=== PATIENT | male | born 1960 | race Caucasian/White ===

== ENCOUNTER 2019-01-21 21:57 | Emergency (ER) | payer OTHER ==
--- NOTE | 2019-01-21 22:28 | PDOC ---
History of Present Illness <Nicolasa Champion - Last Filed: 01/22/19 04:11> - General History Source: Patient, Family Exam Limitations: Language Barrier - History of Present Illness Initial Comments: 01/21/19 22:28 Bryant Isbell is a 58yM with PMHx diabetes, HTN, HLD, prostate hyperplasia presenting with fall. Underwent prostate biopsy 5pm today with subsequent gross bleeding w blood clots from rectum and hematuria. At 830pm, after urinating and seeing blood, pt felt dizzy, cold sweats, pale, and slumped on knees onto ground. No head trauma or LOS. Took prescribed antibiotics as directed after biopsy. Denies fever, n/v, SOB, chest/AB pain, diarrhea/constipation. Dr. Rio Ace urologist [phone] <Cain Sharma - Last Filed: 01/22/19 07:52> - General Chief Complaint: Blood Pressure Problem Stated Complaint: BLEEDING Time Seen by Provider: 01/21/19 22:28 Past History <Nicolasa Champion - Last Filed: 01/22/19 04:11> - Past Medical History Diabetes: Yes Disorders: Yes (BPH) HTN: Yes - Suicide/Smoking/Psychosocial Hx Smoking History: Never smoked Have you smoked in the past 12 months: No Hx Alcohol Use: No Drug/Substance Use Hx: No Substance Use Type: None <Cain Sharma - Last Filed: 01/22/19 07:52> - Past Medical History Allergies/Adverse Reactions: Allergies Allergy/AdvReac Type Severity Reaction Status Date / Time No Known Drug Allergies Allergy Verified 01/21/19 22:27 Home Medications: Ambulatory Orders Aspirin [ASA -] 325 mg PO DAILY 10/20/14 Glyburide 5 mg PO DAILY 10/20/14 Lisinopril [Zestril] 10 mg PO DAILY 10/20/14 Metformin HCl [Glucophage] 500 mg PO BID 10/20/14 Simvastatin [Zocor -] 20 mg PO HS 10/20/14 Review of Systems - Review of Systems Constitutional: No: Chills, Fever HEENTM: No: Eye Pain, Nose Pain, Throat Pain Respiratory: No: Cough, Shortness of Breath, Wheezing Cardiac (ROS): No: Chest Pain, Irregular Heart Rate, Palpitations, Syncope ABD/GI: Yes: Rectal Bleeding. No: Abdominal Distended, Constipated, Diarrhea, Nausea, Vomiting : Yes: Hematuria. No: Burning, Dysuria, Discharge, Incontinence Musculoskeletal: No: Back Pain, Joint Pain, Muscle Pain, Muscle Weakness Integumentary: No: Bruising, Flushing, Lesions, Lumps Neurological: No: Headache, Paresthesia, Seizure, Tingling, Tremors Psychiatric: No: Anxiety, Depression Endocrine: No: Excessive Sweating, Flushing, Intolerance to Cold, Intolerance to Heat Hematologic/Lymphatic: No: Anemia, Blood Clots, Easy Bleeding <Cain Sharma - Last Filed: 01/22/19 07:52> *Physical Exam - Vital Signs Last Vital Signs Temp Pulse Resp BP Pulse Ox 98.1 F 74 19 139/47 L 98 01/22/19 02:54 01/22/19 02:54 01/22/19 02:54 01/22/19 02:54 01/22/19 02:54 <Nicolasa Champion - Last Filed: 01/22/19 04:11> - Physical Exam General Appearance: Yes: Nourished, Appropriately Dressed. No: Apparent Distress HEENT: positive: EOMI, HERIBERTO, Normal Voice, Hearing Grossly Normal. negative: Scleral Icterus (R), Scleral Icterus (L) Respiratory/Chest: positive: Lungs Clear, Normal Breath Sounds. negative: Chest Tender, Respiratory Distress, Crackles, Rales, Rhonchi, Stridor, Wheezing Cardiovascular: positive: Regular Rhythm, Regular Rate, S1, S2. negative: Edema , Murmur Gastrointestinal/Abdominal: positive: Normal Bowel Sounds, Flat, Soft. negative : Tender, Organomegaly, Distended, Guarding, Rebound, Hernia, Mass Male Genitalia: positive: normal genitalia. negative: discharge, testicular tenderness, testicular mass Integumentary: positive: Normal Color Neurologic: positive: lidar technician II-XII NML intact, Fully Oriented, Alert, Normal Mood/ Affect, Normal Response, Responsive. negative: Confused, Disoriented <Cain Sharma - Last Filed: 01/22/19 07:52> ED Treatment Course - LABORATORY CBC & Chemistry Diagram: 01/22/19 02:20 01/21/19 23:15 - ADDITIONAL ORDERS Additional order review: Laboratory Results 0801/21/19 01/21/19 00:10 23:15 23:15 Sodium 133 L Potassium 4.2 Chloride 98 Carbon Dioxide 26 Anion Gap 9 BUN 14.7 Creatinine 0.9 Est GFR (CKD-EPI)AfAm 107.22 Est GFR (CKD-EPI)NonAf 92.51 Random Glucose 277 H Calcium 7.7 L Total Bilirubin 0.4 AST 34 ALT 55 Alkaline Phosphatase 88 Creatine Kinase 178 Creatine Kinase Index 0.5 CK-MB (CK-2) 1.0 Troponin I < 0.02 Total Protein 5.5 L Albumin 2.9 L Urine Color Yellow Urine Appearance Clear Urine pH 6.0 Ur Specific [place] 1.021 Urine Protein Negative Urine Glucose (UA) 3+ H Urine Ketones Negative Urine Blood 3+ H Urine Nitrite Negative Urine Bilirubin Negative Urine Urobilinogen 0.2 Ur Leukocyte Esterase Negative Urine WBC (Auto) 2 Urine RBC (Auto) 140 Urine Casts (Auto) 6 U Epithel Cells (Auto) 1.0 Urine Bacteria (Auto) 0.2 01/22/19 01/21/19 02:20 23:15 RBC 3.11 L 3.56 L MCV 83.6 83.8 MCHC 34.7 34.3 RDW 13.0 13.2 MPV 8.0 8.4 Neutrophils % 73.1 76.4 Lymphocytes % 15.6 D 10.0 Monocytes % 3.5 L 5.2 Eosinophils % 7.5 H 8.0 H Basophils % 0.3 0.4 - Medications Given in the ED: ED Medications Discontinued Medications Generic Name Dose Route Start Last Admin Trade Name Freq PRN Reason Stop Dose Admin Sodium Chloride 1,000 ml 01/21/19 23:10 01/22/19 00:00 Normal Saline - IV 01/21/19 23:11 1,000 ml ONCE ONE Administration <Nicolasa Champion - Last Filed: 01/22/19 04:11> - LABORATORY CBC & Chemistry Diagram: 01/22/19 02:20 01/21/19 23:15 <Cain Sharma - Last Filed: 01/22/19 07:52> Medical Decision Making - Medical Decision Making 01/21/19 22:38 CBC CMP trop EKG CXR UA EKG, CMP, CXR normal, trop neg bladder scan showed normal bladder void w/o retention WBC 13, Hgb 10 Repeat BP 140/50, Hgb 10 to 9 after 1L NS given (dilutional) Bryant Isbell is a 58yM with PMHx diabetes, HTN, HLD, prostate hyperplasia presenting with fall s/p prostate biopsy. Fall likely vasovagal syncope d/t vagal symptoms (cold sweats, dizzy, sight of blood). No head trauma, neuro intact. Unlikely substantial blood loss from procedure per urologist. Unlikely cardiac origin in setting of normal CXR, EKG. Bladder scan showed normal bladder void without signs of retention. Given 1L NS for low BP. D/c home with urology <Cain Sharma - Last Filed: 01/22/19 07:52> *DC/Admit/Observation/Transfer - Discharge Dispostion Decision to Admit order: No <Nicolasa Champion - Last Filed: 01/22/19 04:11> <Cain Sharma - Last Filed: 01/22/19 07:52> Diagnosis at time of Disposition: Rectal bleeding - Discharge Dispostion Disposition: HOME Condition at time of disposition: Stable - Referrals Referrals: Miguel Ángel Tang [Primary Care Provider] - - Patient Instructions Printed Discharge Instructions: DI for Rectal Bleeding - Post Discharge Activity
[2019-01-21 22:29] VITALS: BMI 29.6
[2019-01-21] MEDS ORDERED: SODIUM CHLORIDE 0.9% 500 ML INFUS.BAG IV ONE (23:10)
[2019-01-21 23:37] LABS: BASO % 0.4 % (0-2.0); HEMATOCRIT 29.9 % (35.4-49); HEMOGLOBIN 10.2 GM/dL (11.7-16.9); MCH 28.7 pg (25.7-33.7); MCHC 34.3 g/dl (32.0-35.9); MEAN CELL VOLUME 83.8 fl (80-96); MEAN PLT VOLUME 8.4 fl (7.5-11.1); MONO % 5.2 % (3.8-10.2); NEUT % 76.4 % (42.8-82.8); PLATELET COUNT 202 K/MM3 (134-434); RBC 3.56 M/mm3 (4.00-5.60); RDW 13.2 % (11.9-15.9); WHITE BLOOD COUNT 13.6 K/mm3 (4.0-10.0)
--- NOTE | 2019-01-21 23:47 | PDOC ---
Documentation entered by Laney Peters SCRIBE, acting as scribe for Nicolasa Champion MD. Nicolasa Champion MD: This documentation has been prepared by the Fran noe Brenda, SCRIBE, under my direction and personally reviewed by me in its entirety. I confirm that the documentation accurately reflects all work, treatment, procedures, and medical decision making performed by me. Attending Attestation - Resident Resident Name: Cain Sharma - ED Attending Attestation I have performed the following: I have examined & evaluated the patient, The case was reviewed & discussed with the resident, I agree w/resident's findings & plan - HPI HPI: 01/21/19 23:10 The patient is a 58 year old male, with a significant PMH of diabetes, HTN, HLD and prostate hyperplasia, who presents to the emergency department after a fall following a prostate biopsy. As per grandson, on the bedside, the patient had the biopsy today at 5:00pm, upon getting home while trying to walk to his bed he became pale and experced cold sweats at which point he fell. As per , on the bedside, the patient lost a lot of blood. The patient denies chest pain, shortness of breath, headache and dizziness. Denies fever, vomiting, diarrhea and constipation. Denies any urinary symptoms. Allergies: NKA Social history: Denies any tobacco use, alcohol use or illicit drug use. Urologist: Isaac PCP: [facility] - Physicial Exam PE: 01/21/19 23:12 GENERAL: Awake, alert, and fully oriented, in no acute distress HEAD: No signs of trauma EYES: PERRLA, EOMI, sclera anicteric, conjunctiva clear ENT: Auricles normal inspection, hearing grossly normal, nares patent, oropharynx clear without exudates. Moist mucosa NECK: Normal ROM, supple, no lymphadenopathy, JVD, or masses LUNGS: Breath sounds equal, clear to auscultation bilaterally. No wheezes, and no crackles HEART: Regular rate and rhythm, normal S1 and S2, no murmurs, rubs or gallops ABDOMEN: Soft, nontender, normoactive bowel sounds. No guarding, no rebound. No masses EXTREMITIES: Normal range of motion, no edema. No clubbing or cyanosis. No cords, erythema, or tenderness NEUROLOGICAL: Cranial nerves II through XII grossly intact. Normal speech, normal gait SKIN: Warm, Dry, normal turgor, no rashes or lesions noted. - Medical Decision Making 01/21/19 22:49 Pt's urologist Isaac is recommending bladder US and for us to treat with rocephin 01/22/19 00:41 Pt has hb of 10; this is low, given the fact that pt's systolic BP is 104 and that he has no old HB for comparison. We will repeat CBC at 4 hrs. 01/22/19 00:54 Cardiomegaly (however this is a portable film) normal mediastinum; clear lung gentile
[2019-01-22 00:08] LABS: ALBUMIN 2.9 g/dl (3.4-5.0); BILIRUBIN,TOTAL 0.4 mg/dL (0.2-1); BLOOD UREA NITROGEN 14.7 mg/dL (7-18); CALCIUM 7.7 mg/dL (8.5-10.1); CREATININE 0.9 mg/dL (0.55-1.3); POTASSIUM 4.2 mmol/L (3.5-5.1); TOT PROT 5.5 g/dl (6.4-8.2)
[2019-01-22 02:32] LABS: MEAN CELL VOLUME 83.6 fl (80-96); NEUT % 73.1 % (42.8-82.8)
[2019-01-22 02:37] LABS: BASO % 0.3 % (0-2.0); EOS % 7.5 % (0-4.5); LYMPH % 15.6 % (8-40); MCHC 34.7 g/dl (32.0-35.9); MONO % 3.5 % (3.8-10.2); PLATELET COUNT 182 K/MM3 (134-434); RBC 3.11 M/mm3 (4.00-5.60); WHITE BLOOD COUNT 10.2 K/mm3 (4.0-10.0)
[2019-01-22 02:55] VITALS: TEMP 98.1
[2019-01-22 03:52] LABS: HYALINE CASTS 6 /lpf (0-8); URINE APPEARANCE CLEAR; URINE BACTERIA 0.2 /hpf (NEGATIVE); URINE BILIRUBIN NEGATIVE (NEGATIVE); URINE COLOR YELLOW; URINE GLUCOSE (UA) 3+ (NEGATIVE); URINE KETONE NEGATIVE (NEGATIVE); URINE LEUK ESTERASE NEGATIVE (NEGATIVE); URINE NITRITE NEGATIVE (NEGATIVE); URINE PROTEIN NEGATIVE (NEGATIVE); URINE RBC 140 /hpf (0-4); URINE UROBILINOGEN 0.2 mg/dL (0.2-1.0); URINE WBC 2 /hpf (0-5)
[2019-01-22 04:26] VITALS: BP 112/63; PULSE 71
--- NOTE | 2019-01-22 15:18 | EKG ---
Test Reason : Blood Pressure : / mmHG Vent. Rate : 076 BPM Atrial Rate : 076 BPM P-R Int : 154 ms QRS Dur : 084 ms QT Int : 390 ms P-R-T Axes : 041 -08 013 degrees QTc Int : 438 ms POOR DATA QUALITY, INTERPRETATION MAY BE ADVERSELY AFFECTED NORMAL SINUS RHYTHM NONSPECIFIC T WAVE ABNORMALITY ABNORMAL ECG WHEN COMPARED WITH ECG OF 08-SEP-2007 09:46, NO SIGNIFICANT CHANGE WAS FOUND Confirmed by MD Steven, Maicol ([id number]) on 01/22/2019 3:18:09 PM Referred By: Confirmed By:Maicol Harris MD
== END 2019-01-22 04:15 | disposition home or self-care (01) ==
LOC: JER 21:57
PROC: 3E0337Z Introduction of Electrolytic and Water Balance Substance into Peripheral Vein, Percutaneous Approach (ICD-10-PCS; principal; 2019-01-21)
DX: K62.5 Hemorrhage of anus and rectum (principal); I10 Essential (primary) hypertension; E78.5 Hyperlipidemia, unspecified
CPT/HCPCS: 36415; 71045-TC-FY; 80053; 81003; 82550; 82553; 84484; 85025; 93005; 93010; 99283-25

== ENCOUNTER 2023-10-12 04:01 | Day surgery (SDC) | payer OTHER ==
[2023-10-08 16:41] VITALS: BMI 33.4
[2023-10-12 11:24] VITALS: RESP 18
[2023-10-12] MEDS ORDERED: MIDAZOLAM HCL 2 MG/2 ML SINGLE DOSE VIAL ONE (13:56)
[2023-10-12] MEDS ORDERED: PROPOFOL 20 ML ONE (13:56)
[2023-10-12] MEDS ORDERED: FENTANYL CITRATE/PF 50 MCG/ML VIAL ONE ×2 (13:56→14:17)
[2023-10-12] MEDS ORDERED: ONDANSETRON 4 MG/2 ML VIAL ONE (13:56)
[2023-10-12 14:44] VITALS: BP 117/76; PULSE 74; TEMP 97.8
== END 2023-10-12 15:20 | disposition home or self-care (01) ==
LOC: JASU-SURG 04:01
PROVIDERS: ATTEND Urology
PROC: 0TF3XZZ Fragmentation in Right Kidney Pelvis, External Approach (ICD-10-PCS; principal; 2023-10-12 13:00)
DX: N20.0 Calculus of kidney (principal)
CPT/HCPCS: 82962